=== PATIENT | female | born 2005 | race Caucasian/White ===

== ENCOUNTER 2024-04-12 06:00 | Emergency (ER) | payer SELFPAY ==
[2024-04-12 06:09] VITALS: RESP 20; BMI 17.5
[2024-04-12] MEDS ORDERED: ACETAMINOPHEN 500 MG TABLET (FP) ONE (08:55)
[2024-04-12] MEDS: ACETAMINOPHEN 500 MG TABLET (FP) PO ONE ×2 (09:11→09:12)
[2024-04-12 09:15] LABS: BASO % 0.8 % (0-2.0); HEMATOCRIT 44.2 % (32.4-45.2); HEMOGLOBIN 14.3 GM/dL (10.7-15.3); LYMPH % 37.8 % (8-40); MCH 26.5 pg (25.7-33.7); MCHC 32.3 g/dl (32.0-36.0); MEAN PLT VOLUME 8.3 fl (7.5-11.1); MONO % 3.4 % (3.8-10.2); PLATELET COUNT 325 10^3/uL (134-434); RBC 5.39 M/mm3 (3.60-5.2); RDW 14.2 % (11.6-15.6); WHITE BLOOD COUNT 7.2 K/mm3 (4.0-10.0)
[2024-04-12 09:30] LABS: POTASSIUM 4.1 mmol/L (3.5-5.1)
[2024-04-12 09:31] LABS: CALCIUM 9.8 mg/dL (8.5-10.1)
[2024-04-12 09:32] LABS: ALBUMIN 4.4 g/dl (3.4-5.0); BLOOD UREA NITROGEN 8.5 mg/dL (7-18)
[2024-04-12 09:35] LABS: CREATININE 0.7 mg/dL (0.55-1.3)
[2024-04-12 09:37] LABS: BILIRUBIN,TOTAL 0.3 mg/dL (0.2-1); TOT PROT 8.8 g/dl (6.4-8.2)
[2024-04-12 13:05] VITALS: BP 117/72; PULSE 114; TEMP 98.2
== END 2024-04-12 11:00 | disposition home or self-care (01) ==
LOC: JER 06:00
DX: R07.81 Pleurodynia (principal); M79.602 Pain in left arm
CPT/HCPCS: 36415; 71046-TC-FY; 80053; 84484; 84703; 85025; 85379; 93005; 93010; 99285-25